=== PATIENT | female | born 1970 | race African-American/Black ===

== ENCOUNTER 2016-12-06 07:00 | Day surgery (SDC) | payer OTHER ==
--- NOTE | 2016-11-28 08:25 | HP ---
DATE OF ADMISSION: 12/06/2016 Patient to be admitted to the [facility] for surgery in the near future, date to be determined. HISTORY: This is a 46-year-old woman who has carried a diagnosis of Graves disease for some time now. She has been treated in the past and continues to be treated with methimazole. She also had I-131 thyroid treatment as recent as May of this past year. Nonetheless, at this time the patient has been referred by Dr. Marshall, of the endocrine service, for surgical management of her disease. According to the patient, her only complaint is some raspiness to her voice in the morning, which she feels clears over the course of the day. She also always feels like she has phlegm at the back of her throat but is unable to bring anything up. The patient is euthyroid, based on recent laboratory data dated September 30, 2016. Both her mother and her brother have had thyroid surgery. She does not believe either one has had thyroid cancer. There is no history of head or neck external radiation. Voice change as described above only. The patient's past medical history is essentially nil otherwise. No history of hypertension; heart disease; diabetes; respiratory, renal or hepatic insufficiency. Past surgical history is significant for rotator cuff surgery in 2007 as well as back surgery in 2009. ALLERGIES: CODEINE, REGLAN. MEDICATIONS: Methimazole. SOCIAL HISTORY: Positive tobacco, half pack per day. Negative alcohol. FAMILY HISTORY: Mother: History of thyroid disorder as well as hypercholesterolemia. Review of systems otherwise nil. On physical exam, the patient has a large protuberant bilateral gland. On palpation, the gland is enlarged diffusely, more so on the right than the left. There are no discrete nodules. There is no regional lymphadenopathy. Thyroid ultrasound evaluation of the neck demonstrates the right lobe measuring up to 6.8 cm in size, with the left lobe measuring up to 6.2 cm in size. The gland is heterogeneous in texture and is hypervascular. There is no discrete cystic or solid mass noted. Thyroid nuclear scan dated November 02, 2015, demonstrates findings suggestive of Graves disease. IMPRESSION: Goiter/Graves disease. Patient with some compressive symptoms. PLAN: Patient to present for near total/total thyroidectomy as surgical management of her Graves disease. Patient to be seen perioperatively by Dr. Marshall for Lugol treatment. I have taken the liberty of asking the patient to complete a CAT scan of the neck to assess any degree of tracheal compression that could potentially be a problem at the time of intubation. Indications, alternatives, possible complications, including but not limited to voice changes, (i.e. hoarseness), reviewed with patient at length. Consent obtained. Patient to be seen preoperatively by Dr. Jay Cantu. Please refer to his notes for those medical details. AMANDO WHITNEY M.D. [id number] Cc: Crow Marshall MD; Dr. Jay Cantu
[2016-12-04 15:06] VITALS: BMI 27.4
[2016-12-06] MEDS ORDERED: ceFAZolin SODIUM 1 GM VIAL ONE (07:31)
[2016-12-06] MEDS ORDERED: SUCCINYLCHOLINE CHLORIDE 200 MG/10 ML VIAL ONE (09:02)
[2016-12-06] MEDS ORDERED: MIDAZOLAM HCL 2 MG/2 ML SINGLE DOSE VIAL ONE (09:02)
[2016-12-06] MEDS ORDERED: ROCURONIUM BROMIDE 50 MG/5 ML VIAL ONE ×2 (09:02→10:54)
[2016-12-06] MEDS ORDERED: PROPOFOL 20 ML ONE ×2 (09:02)
[2016-12-06] MEDS ORDERED: LIDOCAINE HCL/PF 2% SDV 5ML VIAL ONE (09:02)
[2016-12-06] MEDS ORDERED: DESFLURANE GAS 240 ML BOTTLE IH ONE (09:10)
[2016-12-06] MEDS ORDERED: ceFAZolin SODIUM 1 GM VIAL IVPB ONE (09:22)
[2016-12-06] MEDS ORDERED: ONDANSETRON 4 MG/2 ML VIAL ONE (09:34)
[2016-12-06] MEDS ORDERED: NEOSTIGMINE METHYLSULFATE 0.5 MG/ML - 10 ML MDV ONE (09:35)
[2016-12-06] MEDS ORDERED: KETOROLAC TROMETHAMINE 30 MG/1 ML VIAL ONE (09:35)
[2016-12-06] MEDS ORDERED: DEXAMETHASONE SOD PHOSPHATE 4 MG/1 ML VIAL ONE (09:35)
[2016-12-06] MEDS ORDERED: GLYCOPYRROLATE 0.2 MG/1 ML VIAL ONE ×2 (09:35)
[2016-12-06] MEDS ORDERED: ONDANSETRON 4 MG/2 ML VIAL IVPUSH PRN (12:03)
[2016-12-06] MEDS ORDERED: oxyCODONE HCL 5 MG TABLET PO PRN (12:03)
[2016-12-06] MEDS ORDERED: PROMETHAZINE HCL 25 MG/1 ML VIAL IVPUSH PRN (12:03)
[2016-12-06] MEDS ORDERED: D5-1/2NS+20 MEQ KCL - 1,000 ML IV SCH (13:00)
[2016-12-06] MEDS ORDERED: ACETAMINOPHEN INJECTION 100 ML IVPB ONE (14:06)
[2016-12-06] MEDS ORDERED: ACETAMINOPHEN 1000 MG/100 ML VIAL (NON FORMULARY) IVPB ONE (14:22)
[2016-12-06] MEDS ORDERED: morphine CARPU-JECT 4 MG/1 ML DISP.SYRIN IVPB PRN (15:50)
[2016-12-06] MEDS ORDERED: ACETAMINOPHEN 325 MG TABLET (FP) PO PRN (15:52)
[2016-12-06] MEDS: FAMOTIDINE 20 MG/50 ML IVPB 50 ML IVPB SCH (21:35)
--- NOTE | 2016-12-07 08:22 | PN ---
Progress Note (short form) - Note Progress Note: POD #1 - s/p total thyroidectomy under general anesthesia. Pt. doing well, sitting up comfortably in bed eating breakfast. No complaints. No apparent anesthetic complications noted. Continue current care.
[2016-12-07] MEDS: FAMOTIDINE 20 MG/50 ML IVPB 50 ML IVPB SCH (09:24)
[2016-12-07 10:36] VITALS: BP 116/78; PULSE 62; TEMP 98.2
--- NOTE | 2016-12-07 13:36 | OP ---
DATE OF OPERATION: 12/06/2016 PREOPERATIVE DIAGNOSIS: Graves disease/goiter. POSTOPERATIVE DIAGNOSIS: Graves disease/goiter. PROCEDURE: Total thyroidectomy/intermediate wound closure (8 cm). OPERATING SURGEON: Sukumar Munguia MD TERRITORY SALES CONSULTANT: Abdias Baca MD ANESTHESIA: Osmel Smith MD (general) HISTORY: This is a 46-year-old woman who has suffered with Graves disease for quite some time, managed with methimazole as well as I-131in the past. Recently, she was referred by endocrine service for surgical management for disease. Indications, alternatives, and possible complications reviewed. Consent was obtained. DESCRIPTION OF PROCEDURE: With the patient in supine position, and after general anesthesia, the neck was prepped and draped in sterile fashion using chlorhexidine. An 8-cm anterior transverse incision was made about the neck approximately 2 fingerbreadths above the sternal notch. The incision was deepened into the subcutaneous space. The subcutaneous tissues as well as the platysma were divided and the strap muscles visualized. The superior flap was raised to the level of the hyoid bone using sharp dissection. The anterior flap was raised to the level of the recess of the sternal notch. After retractors were placed, the strap muscles were divided in the midline. First directing out attention to the patients right side, the right strap muscles were retracted laterally, exposing the right thyroid lobe. First directing our attention to the inferior pole, the inferior pole vessels were identified and taken using the ligature. The middle thyroid vein was also identified and taken as well. Now, directing our attention to the superior pole, the superior pole vessels were taken serially as the thyroid gland was retracted in the caudal direction. The superior parathyroid gland on the right was identified. The inferior gland was not seen during the course of the dissection. The right lobe was then swept medially up over the thyroid where it was disconnected from its rather dense attachment to the trachea itself using sharp dissection with the electrocautery. During the course of the dissection on the right side, the recurrent laryngeal nerve was identified. Now, directing our attention to the left side, the left gland was approached as described above for the right with the inferior pole taken first. Again, the middle vein was taken under direct vision. Superior pole vessels were taken, and the gland freed at that level, as well. Again, the superior parathyroid gland was noted on the left side, but the inferior gland was not seen. The recurrent laryngeal nerve was identified during the course of the dissection. Ultimately, the entire gland was freed from its attachment to the trachea and delivered en bloc. A suture was placed at the level of the left upper lobe to identify the orientation of the specimen for the pathologist. After irrigation and adequate hemostasis, the wound was closed first approximating the strap muscles using a continuous 3-0 chromic suture. A Min-De Leon drain was placed in the depths of the neck and exited through a separate stab wound at the level of the left anterior chest wall, where it was tacked to skin with 3-0 silk suture material. The platysma was approximated with interrupted 3-0 chromic sutures. The subcutaneous tissues were approximately with 0 chromic suture. The subcuticular was approximated using interrupted 4-0 Biosyn sutures. Dermabond applied. Procedure terminated. NEEDLE AND INSTRUMENT COUNTS: Correct. ESTIMATED BLOOD LOSS: 50 mL. SPECIMENS: Thyroid gland. DRAINS: One DEBBIE. Patient tolerated the procedure and was transferred to the recovery room. Julianna [id number] cc: MD Jay Albarran MD MTDD
--- NOTE | 2016-12-08 09:46 | PATH ---
Surgical Pathology Report Patient Name: LAUREL VALDEZ [facility]. Rec. #: [id number] /Age/Gender: 1970 (Age: 46) / F Account: [id number] Location: AMBULATORY SURG Taken: 12/06/2016 Received: 12/06/2016 Reported: 12/08/2016 Physicians: Sukumar Munguia M.D. Specimen(s) Received THYROID, TOTAL LOBE Clinical History Thyrotoxicosis with diffuse CPITEX Final Diagnosis THYROID GLAND, TOTAL THYROIDECTOMY: BENIGN THYROID GLAND WITH DIFFUSE AND NODULAR HYPERPLASIA WITH SCALLOPED COLLOID (SEE COMMENT). TWO PARATHYROID GLANDS IDENTIFIED. ONE BENIGN LYMPH NODE. NO MALIGNANCY IDENTIFIED. Comment: The histologic findings are compatible with Graves' disease. Clinical history of thyrotoxicosis is noted. Serological correlations are suggested. Electronically Signed Hussein Gutierrez M.D. Gross Description Received in formalin, labeled "thyroid" is a 62 g total thyroidectomy specimen with a suture marking the superior left lobe, per surgeon. The left lobe measures 5.3 x 2.7 x 1.6 cm, the right lobe measures 5.7 x 3.4 x 2.6 cm and the isthmus measures 2.5 x 2.5 x 1.2 cm. The outer capsule is red-brown and intact. The right lobe is inked red, the left lobe is inked black and the isthmus is inked green. Sectioning reveals pale johnson-pink thyroid parenchyma with multiple pale johnson nodules as well as a focus of hemorrhage in the the right upper lobe. No definite mass is identified. Solar Thermal Installer sections are submitted in 22 cassettes as follows: 1-8-left lobe sequentially from superior to inferior; 2-43-fnhnjsu sequentially from left to right; 12-22-right lobe sequentially from superior to inferior (possible previous biopsy site in cassettes 13-15). 12/06/201612/06/2016
== END 2016-12-07 12:32 | disposition home or self-care (01) ==
LOC: JASUSAT 07:00 → J8W 15:04 → JASUSAT 12-07 12:32
PROVIDERS: ATTEND Surgery
PROC: 0GTK0ZZ Resection of Thyroid Gland, Open Approach (ICD-10-PCS; principal; 2016-12-06 09:00)
DX: E05.00 Thyrotoxicosis with diffuse goiter without thyrotoxic crisis or storm (principal)
CPT/HCPCS: 36415; 71020-TC; 82310; 84443; 84703; 86850; 86900; 86901; 88307-TC; 94010; 94760

== ENCOUNTER 2017-03-08 05:24 | Inpatient (IN) | payer OTHER ==
[2017-03-05 16:01] VITALS: BMI 29.8
[2017-03-08] MEDS ORDERED: MIDAZOLAM HCL 2 MG/2 ML SINGLE DOSE VIAL ONE ×2 (10:07)
[2017-03-08] MEDS ORDERED: CEFAZOLIN 2 GM in DEXTROSE 5%-WATER - 100 ML IVPB ONE (10:32)
--- NOTE | 2017-03-08 10:32 | HP ---
History & Physical Update - History History: No Change - Physical Physical: No Change - Assessment Assessment: No Change - Plan Plan: No Change (Fibroids and AUB, for DUANE and bilateral salpingectomy)
[2017-03-08] MEDS ORDERED: ACETAMINOPHEN 325 MG TABLET (FP) PO PRN (10:49)
[2017-03-08] MEDS ORDERED: IBUPROFEN 800 MG/8 ML IJ IVPB PRN (10:49)
[2017-03-08] MEDS ORDERED: HYDROmorphone HCL 2 MG TABLET PO PRN (10:54)
[2017-03-08] MEDS ORDERED: PROPOFOL 20 ML ONE (11:05)
[2017-03-08] MEDS ORDERED: ROCURONIUM BROMIDE 50 MG/5 ML VIAL ONE (11:05)
[2017-03-08] MEDS ORDERED: ceFAZolin SODIUM 1 GM VIAL IVPB ONE (11:07)
[2017-03-08] MEDS ORDERED: ceFAZolin SODIUM 1 GM VIAL ONE (11:15)
[2017-03-08] MEDS ORDERED: LIDOCAINE HCL 2% (20ML MULTI-DOSE VIAL) NR ONE (11:15)
[2017-03-08] MEDS ORDERED: KETOROLAC TROMETHAMINE 30 MG/1 ML VIAL ONE (11:15)
[2017-03-08] MEDS ORDERED: DEXAMETHASONE SOD PHOSPHATE 4 MG/1 ML VIAL ONE (11:15)
[2017-03-08] MEDS ORDERED: GLYCOPYRROLATE 0.2 MG/1 ML VIAL ONE (12:24)
[2017-03-08] MEDS ORDERED: NEOSTIGMINE METHYLSULFATE 0.5 MG/ML - 10 ML MDV ONE (12:25)
--- NOTE | 2017-03-08 12:50 | OP ---
Operative Note - Note: Operative Date: 03/08/17 Pre-Operative Diagnosis: fibroid uterus, abnormal uterine bleeding Operation: total abdominal hysterectomy, bilateral salpingectomy, right oophorectomy Findings: right ovarian cyst - solid and cystic components Post-Operative Diagnosis: Same as Pre-op Surgeon: Eugenia Ricketts Wood Barker: Sherry Rich Anesthesiologist/MANAGER PSYCHIATRY: Bharti Collier MD Anesthesia: General Specimens Removed: uterus, cervix, bliateral fallopian tubes, right ovary Estimated Blood Loss (mls): 300 Drains, Volume Out (mls): 150 (urine) Fluid Volume Replaced (mls): 1,600 Operative Report Dictated: Yes
[2017-03-08] MEDS ORDERED: ONDANSETRON 4 MG/2 ML VIAL IVPUSH PRN (13:12)
[2017-03-08] MEDS ORDERED: DEXAMETHASONE SOD PHOSPHATE 4 MG/1 ML VIAL IVPUSH PRN (13:12)
[2017-03-08] MEDS ORDERED: PROMETHAZINE HCL 25 MG/1 ML VIAL IVPB PRN (13:12)
[2017-03-08] MEDS ORDERED: HYDROmorphone *PCA* 10MG/50ML DISP.SYRIN PCA SCH (13:15)
[2017-03-08] MEDS: LACTATED RINGERS SOLUTION 1,000 ML IV SCH ×2 (13:30→23:15)
[2017-03-08] MEDS ORDERED: ACETAMINOPHEN 1000 MG/100 ML VIAL (NON FORMULARY) IVPB ONE (15:00)
[2017-03-08] MEDS: ONDANSETRON 4 MG/2 ML VIAL IVPB PRN (18:06)
[2017-03-08] MEDS: CEFAZOLIN (PRE-DOCKED) 50 ML IVPB SCH (19:30)
[2017-03-09] MEDS: CEFAZOLIN (PRE-DOCKED) 50 ML IVPB SCH ×2 (03:07→10:02)
[2017-03-09] MEDS: traMADol HCL 50 MG TABLET PO PRN (08:21)
--- NOTE | 2017-03-09 08:36 | PN ---
Progress Note (short form) - Note Progress Note: ANESTHESIOLOGY POST-OP CHECK 46F s/p DUANE-BS and right oophorectomy with TAP blocks and under general anesthesia POD #1. No acute complaints. Pain 5/10 [address] on dilaudid DRIVE MAN. Tolerating PO . ambulating, voiding. Vital Signs Temperature 97.8 F 03/09/17 01:18 Pulse Rate 54 L 03/09/17 01:18 Respiratory Rate 20 03/09/17 01:18 Blood Pressure 137/77 03/09/17 01:18 O2 Sat by Pulse Oximetry (%) 99 03/08/17 15:31 Active Medications Acetaminophen (Tylenol -) 650 mg PO Q4H PRN PRN Reason: FEVER OR PAIN Calcium/Vitamin D (Oscal 250 Mg+D -) tab PO TID [facility] Dexamethasone Sodium Phosphate (Decadron Injection -) 4 mg IVPUSH ONCE PRN PRN Reason: NAUSEA AND/OR VOMITING Diphenhydramine HCl (Benadryl Injection -) 12.5 mg IVPUSH ONCE PRN PRN Reason: FOR ITCHING Enoxaparin Sodium (Lovenox -) 40 mg SQ DAILY [facility] Fentanyl (Sublimaze Injection -) 50 mcg IVPUSH [id number] PRN PRN Reason: PAIN Stop: 03/11/17 13:13 Last Admin: 03/08/17 12:48 Dose: 50 mcg Hydromorphone HCl (Dilaudid Peoplesoft Business Analyst -) [address] [facility] PRN Reason: Protocol Stop: 03/15/17 13:12 Last Admin: 03/08/17 13:30 Dose: 10 mg Lactated Ringer's (Lactated Ringers Solution) 1,000 mls @ 125 mls/hr IV ASDIR [facility] Last Admin: 03/08/17 23:15 Dose: 125 mls/hr Cefazolin Sodium (Ancef 1gm Ivpb (Pre-Docked)) 50 mls @ 100 mls/hr IVPB Q8H [facility] Stop: 03/09/17 11:29 Last Admin: 03/09/17 03:07 Dose: 100 mls/hr Ibuprofen (Caldolor Injection -) 800 mg IVPB Q8H PRN PRN Reason: FEVER Levothyroxine Sodium (Synthroid -) 88 mcg PO DAILY [facility] Ondansetron HCl (Zofran Injection) 4 mg IVPB Q6H PRN PRN Reason: NAUSEA Stop: 03/09/17 09:01 Last Admin: 03/08/17 18:06 Dose: 4 mg Promethazine HCl (Phenergan Injection -) 12.5 mg IVPB Q6H PRN PRN Reason: NAUSEA AND/OR VOMITING Tramadol HCl (Ultram -) 50 mg PO Q6H PRN PRN Reason: PAIN Last Admin: 03/09/17 08:21 Dose: 50 mg Gen: awake, alert No apparent anesthesia complications. Pain well controlled. D/C DRIVE MAN and switch to PO analgesics when tolerating PO diet. Continue management as per primary team
[2017-03-09 08:56] LABS: BASOPHIL 0.5 % (0-2.0); EOSINOPHIL 0.6 % (0-4.5); MCH 27.7 pg (25.7-33.7); MCHC 33.6 g/dl (32.0-36.0); MEAN CELL VOLUME 82.3 fl (80-96); MEAN PLT VOLUME 7.4 fl (7.5-11.1); NEUTROPHILS 82.9 % (42.8-82.8); PLATELET COUNT 249 K/MM3 (134-434); RDW 17.7 % (11.6-15.6); WHITE BLOOD COUNT 16.9 K/mm3 (4.0-10.0)
[2017-03-09] MEDS: ONDANSETRON 4 MG/2 ML VIAL IVPB PRN (08:58)
--- NOTE | 2017-03-09 09:43 | PN ---
Progress Note, Physician Chief Complaint: Pt with no complaints History of Present Illness: Pt seen/evaluated and doing well. Pain controlled, tolerating clear diet. Ambulating, voiding. No flatus yet. Pt states she was unable to sleep well last night. Denies VB. No CP/SOB/F/C/STALLWORTH or other complaints. - Current Medication List Current Medications: Active Medications Acetaminophen (Tylenol -) 650 mg PO Q4H PRN PRN Reason: FEVER OR PAIN Calcium/Vitamin D (Oscal 250 Mg+D -) tab PO TID [facility] Dexamethasone Sodium Phosphate (Decadron Injection -) 4 mg IVPUSH ONCE PRN PRN Reason: NAUSEA AND/OR VOMITING Diphenhydramine HCl (Benadryl Injection -) 12.5 mg IVPUSH ONCE PRN PRN Reason: FOR ITCHING Enoxaparin Sodium (Lovenox -) 40 mg SQ DAILY [facility] Fentanyl (Sublimaze Injection -) 50 mcg IVPUSH [id number] PRN PRN Reason: PAIN Stop: 03/11/17 13:13 Last Admin: 03/08/17 12:48 Dose: 50 mcg Hydromorphone HCl (Dilaudid Child Watch Attendant -) 0 mg INSULATION CUPOLA OPERATOR INSULATION CUPOLA OPERATOR CESAR PRN Reason: Protocol Stop: 03/15/17 13:12 Last Admin: 03/08/17 13:30 Dose: 10 mg Lactated Ringer's (Lactated Ringers Solution) 1,000 mls @ 125 mls/hr IV ASDIR [facility] Last Admin: 03/08/17 23:15 Dose: 125 mls/hr Cefazolin Sodium (Ancef 1gm Ivpb (Pre-Docked)) 50 mls @ 100 mls/hr IVPB Q8H [facility] Stop: 03/09/17 11:29 Last Admin: 03/09/17 03:07 Dose: 100 mls/hr Ibuprofen (Caldolor Injection -) 800 mg IVPB Q8H PRN PRN Reason: FEVER Levothyroxine Sodium (Synthroid -) 88 mcg PO DAILY [facility] Promethazine HCl (Phenergan Injection -) 12.5 mg IVPB Q6H PRN PRN Reason: NAUSEA AND/OR VOMITING Tramadol HCl (Ultram -) 50 mg PO Q6H PRN PRN Reason: PAIN Last Admin: 03/09/17 08:21 Dose: 50 mg - Objective Vital Signs: Vital Signs Temperature 97.8 F 03/09/17 01:18 Pulse Rate 54 L 03/09/17 01:18 Respiratory Rate 20 03/09/17 01:18 Blood Pressure 137/77 03/09/17 01:18 O2 Sat by Pulse Oximetry (%) 99 03/08/17 15:31 Constitutional: Yes: Well Nourished, No Distress, Calm Eyes: Yes: Conjunctiva Clear, EOM Intact HENT: Yes: Atraumatic, Normocephalic Neck: Yes: Supple, Trachea Midline Cardiovascular: Yes: Regular Rate and Rhythm Respiratory: Yes: Regular, CTA Bilaterally Gastrointestinal: Yes: Normal Bowel Sounds, Soft. No: Tenderness Extremities: Yes: WNL Edema: No Wound/Incision: Yes: Clean/Dry, Well Approximated, Sutures Intact, Steri Strips Neurological: Yes: Alert, Oriented Labs: CBC, BMP 03/09/17 08:30 Problem List - Problems (1) S/P abdominal hysterectomy Code(s): Z90.710 - ACQUIRED ABSENCE OF BOTH CERVIX AND UTERUS (2) Hypothyroidism (acquired) Code(s): E03.9 - HYPOTHYROIDISM, UNSPECIFIED (3) Anemia Code(s): D64.9 - ANEMIA, UNSPECIFIED Assessment/Plan 46 y/o POD#1 s/p DUANE and bilateral salpingectomy, right oophorectomy for fibroids, AUB and right ovarian cyst - AFVSS - Hgb 10.6 this a.m., pt stable, no signs/sx of anemia - tolerating clear diet, advance to regular as tolerated - pain controlled with IV Dilaudid overnight, will try PO dilaudid today ( ultram made patient vomit) - encourage ambulation - hypothryoid - continue synthroid - routine care, plan for discharge home in a.m. 03/10
[2017-03-09] MEDS ORDERED: ENOXAPARIN NA (PORCINE) 40 MG/0.4 ML DISP.SYRIN SQ SCH (10:00)
[2017-03-09] MEDS: LACTATED RINGERS SOLUTION 1,000 ML IV SCH (11:00)
[2017-03-09] MEDS: LEVOTHYROXINE NA 88 MCG TABLET (FP) PO SCH (12:38)
[2017-03-09] MEDS: CALCIUM 250MG/VIT-D 125 UNITS 1 COMBO TABLET PO SCH ×2 (14:00→23:02)
[2017-03-09] MEDS ORDERED: BISACODYL 10 MG SUPP.RECT PR ONE (15:06)
[2017-03-09] MEDS ORDERED: PCA PUMP KEY 1 EACH EACH ONE ×2 (15:23→15:26)
[2017-03-10] MEDS: CALCIUM 250MG/VIT-D 125 UNITS 1 COMBO TABLET PO SCH (06:18)
[2017-03-10] MEDS: LEVOTHYROXINE NA 88 MCG TABLET (FP) PO SCH (06:18)
[2017-03-10] MEDS: traMADol HCL 50 MG TABLET PO PRN (07:42)
--- NOTE | 2017-03-10 08:39 | PN ---
Progress Note, Physician Chief Complaint: s/p tahbso condition stable - Current Medication List Current Medications: Active Medications Acetaminophen (Tylenol -) 650 mg PO Q4H PRN PRN Reason: FEVER OR PAIN Last Admin: 03/09/17 21:50 Dose: 650 mg Calcium/Vitamin D (Oscal 250 Mg+D -) 1 tab PO TID [facility] Last Admin: 03/10/17 06:18 Dose: 1 tab Dexamethasone Sodium Phosphate (Decadron Injection -) 4 mg IVPUSH ONCE PRN PRN Reason: NAUSEA AND/OR VOMITING Diphenhydramine HCl (Benadryl Injection -) 12.5 mg IVPUSH ONCE PRN PRN Reason: FOR ITCHING Enoxaparin Sodium (Lovenox -) 40 mg SQ DAILY [facility] Last Admin: 03/09/17 10:01 Dose: 40 mg Fentanyl (Sublimaze Injection -) 50 mcg IVPUSH [id number] PRN PRN Reason: PAIN Stop: 03/11/17 13:13 Last Admin: 03/08/17 12:48 Dose: 50 mcg Hydromorphone HCl (Dilaudid Glost Tile Shader -) 0 mg MANUFACTURING ASSOCIATE MANUFACTURING ASSOCIATE [facility] PRN Reason: Protocol Stop: 03/15/17 13:12 Last Admin: 03/08/17 13:30 Dose: 10 mg Lactated Ringer's (Lactated Ringers Solution) 1,000 mls @ 125 mls/hr IV ASDIR [facility] Last Admin: 03/09/17 11:00 Dose: 125 mls/hr Ibuprofen (Caldolor Injection -) 800 mg IVPB Q8H PRN PRN Reason: FEVER Last Admin: 03/09/17 10:51 Dose: 800 mg Levothyroxine Sodium (Synthroid -) 88 mcg PO DAILY@0700 [facility] Last Admin: 03/10/17 06:18 Dose: 88 mcg Promethazine HCl (Phenergan Injection -) 12.5 mg IVPB Q6H PRN PRN Reason: NAUSEA AND/OR VOMITING Tramadol HCl (Ultram -) 50 mg PO Q6H PRN PRN Reason: PAIN Last Admin: 03/10/17 07:42 Dose: 50 mg - Objective Vital Signs: Vital Signs Temperature 98.7 F 03/09/17 22:00 Pulse Rate 77 03/09/17 22:00 Respiratory Rate 20 03/09/17 22:00 Blood Pressure 120/70 05/19/17 22:00 O2 Sat by Pulse Oximetry (%) 99 03/09/17 09:48 Constitutional: Yes: Well Nourished, No Distress Eyes: Yes: WNL, Conjunctiva Clear HENT: Yes: WNL, Atraumatic, Normocephalic Neck: Yes: WNL, Supple Cardiovascular: Yes: WNL Respiratory: Yes: WNL, Regular Gastrointestinal: Yes: WNL, Normal Bowel Sounds ...Rectal Exam: Yes: Deferred Genitourinary: Yes: WNL Breast(s): Yes: WNL Musculoskeletal: Yes: WNL Extremities: Yes: WNL Edema: No Integumentary: Yes: WNL Wound/Incision: Yes: Clean/Dry Neurological: Yes: WNL, Alert, Oriented ...Motor Strength: WNL Psychiatric: Yes: WNL, Alert, Oriented Labs: CBC, BMP 03/09/17 08:30 Assessment/Plan s/p kosta bso condition is stable discharge [facility]
[2017-03-10 09:11] VITALS: BP 135/69; PULSE 65; TEMP 98.9
--- NOTE | 2017-03-10 11:26 | DS ---
Physical Examination Vital Signs: Vital Signs Temperature 98.9 F 03/10/17 08:35 Pulse Rate 65 03/10/17 08:35 Respiratory Rate 20 03/10/17 08:35 Blood Pressure 135/69 03/10/17 08:35 O2 Sat by Pulse Oximetry (%) 99 03/09/17 09:48 Constitutional: Yes: Well Nourished, No Distress, Calm Eyes: Yes: Conjunctiva Clear, EOM Intact HENT: Yes: Atraumatic, Normocephalic Neck: Yes: Supple, Trachea Midline, Tenderness Respiratory: Yes: Regular, CTA Bilaterally Gastrointestinal: Yes: Normal Bowel Sounds, Soft, Tenderness Edema: No Peripheral Pulses WNL: Yes Wound/Incision: Yes: Clean/Dry, Well Approximated, Sutures Intact, Steri Strips Neurological: Yes: Alert, Oriented Psychiatric: Yes: Alert, Oriented Labs: CBC, BMP 03/09/17 08:30 Discharge Summary Reason For Visit: FIBROIDS Procedures: Principal: Total abdominal hysterectomy, bilateral salpingectomy, right oophorectomy Hospital Course: Patient was admitted on 03/08/17 for scheduled abdominal hysterectomy, bilateral salpingectomy and possible right oophorectomy vs. right ovarian cystectomy. The patient signed consents for the procedure in the office and consents were reconfirmed upon admission. The patient underwent an uncomplicated total abdominal hysterectomy and bilateral saplingectomy with right oophorectomy. Please see operative report for full details of procedure. The patient underwent an uncomplicated post operative recovery and was discharged home in stable condition on post operative day 2. Condition: Good - Instructions Diet, Activity, Other Instructions: Physical activity Resume your normal everyday activity as tolerated but no heavy lifting or strenuous exercise until seen by your surgeon. You may walk unlimited amounts and climb stairs. You may resume driving the car when you feel safe and comfortable behind the wheel- usually about 2 weeks. No sexual activity as instructed for 8 weeks. Wound care If there are tapes or surgical glue on the skin leave them in place. They will peel off in the next 7 to 10 days. Do Not Peel them off. You may shower the day after surgery. If there are tapes or glue present on the skin, you may shower over them. Diet There are no dietary restrictions. Eat healthy, high-fiber foods. Drink 6 to 8 glasses of liquid each day. This will assist in keeping your bowels regular. Pain management You may take Tylenol or Ibuprofen (for example, Motrin, Advil etc.) for mild pain. If any prescription medication is ordered should be taken as prescribed for moderate to severe pain. Call Dr. Ricketts for any of the following: Severe pain not relieved by medication Fever of 101 or higher Excessive bleeding or drainage on dressing Inability to urinate Call the office at [phone] for an appointment in seven days. Referrals: Eugenia Ricketts DO [Staff Physician] - 1 Week Disposition: HOME - Home Medications Comprehensive Discharge Medication List: Ambulatory Orders Calcium 250Mg/Vit-D 125 Units [Oscal 250 mg+D -] 2 combo PO TID #100 tablet Levothyroxine [Synthroid -] 88 mcg PO DAILY 03/05/17 Ferrous Sulfate [Feosol] 325 mg PO DAILY 03/08/17 Hydromorphone [Dilaudid -] 2 - 4 mg PO Q6H #28 tablet MDD 8 03/09/17 Ibuprofen [Motrin -] 600 mg PO QID PRN #28 tablet 03/09/17
--- NOTE | 2017-03-11 21:07 | OP ---
DATE OF OPERATION: 03/08/2017 PREOPERATIVE DIAGNOSIS: Uterine fibroids, abnormal uterine bleeding, right ovarian cyst. POSTOPERATIVE DIAGNOSIS: Uterine fibroids, abnormal uterine bleeding, right ovarian cyst. PROCEDURE: Total abdominal hysterectomy and bilateral salpingectomy, right oophorectomy. SURGEON: Eugenia Ricketts MD AIRPLANE TECHNICIAN: Sherry Rich MD ANESTHESIA: General anesthesia administered by Dr. Collier. ESTIMATED BLOOD LOSS: 300 mL. SPECIMENS: Uterus, bilateral fallopian tubes, cervix and well right ovary to Pathology for permanent evaluation. COUNTS: Sponge, needle and instrument count correct DISPOSITION: Stable to the PACU. BRIEF HISTORY AND PROCEDURE: The patient is a 46-year-old female who had been seen in the office with complaints of heavy vaginal bleeding with her period. The patient has been worked up and noted to have a fibroid uterus. Upon consultation for her options for therapy, the patient had elected to undergo a hysterectomy. The patient signed consents for the procedure in the office, and upon March 08, 2017, the patient was admitted to [facility]. At this point the consents for the procedure were confirmed. The patient was taken to the operating room and given general anesthesia by Dr. Bharti Collier. A Goodwin catheter was placed under sterile conditions. She was prepped and draped in the usual sterile fashion and a hard time-out was performed. A Pfannenstiel skin incision was created in the skin with the scalpel and carried to the underlying layer of rectus fascia with the scalpel. The fascial incision was incised on either side of the midline and carried in a superolateral direction with the Bovie. The fascia was tented upward and dissected off the underlying layer of rectus muscle. The rectus muscle was retracted laterally and the peritoneum was entered bluntly. Next, the uterus was elevated out of the abdomen. Attention was first turned to the right round ligament, which was identified, clamped, ligated, and cut with a LigaSure device. The bladder flap anteriorly was taken down sharply with Metzenbaum scissors. The fallopian tube was dissected off its attachment to the ovary and the uteroovarian anastomosis was then clamped, ligated and cut with a LigaSure device. Next, the right uterine artery was skeletonized and isolated and then clamped, ligated and cut with the LigaSure device in several passes until we reached the level of the cervicovaginal junction. These same steps were repeated on the left side, starting with the left round ligament. The bladder flap was extended to meet in the middle where it had been started from the right side. The left fallopian tube was dissected off its ovarian and uterine attachments with the ligasure device. The uteroovarian ligament on the left side was clamped, ligated, and cut, and the uterine arteries were isolated, clamped and cut, all with the LigaSure device to the level of the cervicovaginal junction. Next, the vagina was entered anteriorly sharply and the uterus was amputated in a 360-degree fashion at the cervicovaginal junction using Dexter scissors. The vaginal cuff was reapproximated using 0 Vicryl suture in a running locked fashion. Hemostasis was achieved. Attention was turned to the right ovary, which was enlarged and had a dominant cyst, which was noted to be somewhat cystic but a solid component was also noted. No clear area to make an incision to excise the ovarian cyst was appreciated. At this time it was decided to remove the entire ovary. The infundibulopelvic ligament was identified, doubly clamped, ligated, and cut with the LigaSure device. The right ovary was sent to Pathology for permanent evaluation. Surgical sites were inspected and noted to be hemostatic. Bilateral ureters were identified transperitoneally bilaterally and noted to be with a normal caliber and peristalsing. Again, all surgical sites were identified and noted to be hemostatic. All sponges and instruments were removed from the abdominal cavity. The peritoneal layer was reapproximated in a running fashion using Vicryl suture. The musculature was reapproximated in a single interrupted suture. The fascia was reapproximated using 0 Vicryl in a running fashion. Subcutaneous tissue was irrigated and reapproximated in interrupted sutures. The skin was reapproximated using Vicryl suture in a subcuticular fashion and Steri-Strips were applied. The patient tolerated the procedure well, is recovering in stable condition in the PACU after the procedure. Sponge needle and instrument counts were reported as correct. EUGENIA RICKETTS DO /[id number] MTDD
--- NOTE | 2017-03-14 11:20 | PATH ---
Surgical Pathology Report Patient Name: LAUREL VALDEZ [facility]. Rec. #: [id number] /Age/Gender: 1970 (Age: 46) / F Account: [id number] Location: [facility] OBS/CERTIFIER Taken: 03/08/2017 Received: 03/08/2017 Reported: 03/12/2017 Physicians: Eugenia Ricketts M.D. Specimen(s) Received A: RIGHT OVARY B: UTERUS AND CERVIX & BILATERAL FALLOPIAN TUBES Clinical History Fibroids, abnormal uterine bleeding Final Diagnosis A. 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 B. UTERUS, CERVIX, BILATERAL FALLOPIAN TUBES, TOTAL ABDOMINAL HYSTERECTOMY, BILATERAL SALPINGECTOMY: CERVIX: CHRONIC CERVICITIS. ENDOMETRIUM: DISORDERED PROLIFERATIVE. MYOMETRIUM: ADENOMYOSIS, LEIOMYOMA (5.7 CM). UTERINE SEROSA: WITHOUT SIGNIFICANT PATHOLOGIC CHANGES. LEFT FALLOPIAN TUBE: FIBRINOHEMORRHAGIC ADHESIONS. RIGHT FALLOPIAN TUBE: FIBROHEMORRHAGIC ADHESIONS AND PARATUBAL CYST. Electronically Signed Hussein Gutierrez M.D. Gross Description A. Received in formalin labeled "right ovary" is a 6.0 x 5.3 x 4.5 cm intact ovary. The outer surface is johnson-valdez and smooth. Sectioning reveals a 4.2 x 3.5 x 3.3 cm homogeneous johnson solid mass as well as a focal mucinous and cystic component. No normal ovarian parenchyma is identified. Silk Spreader sections are submitted in 8 cassettes. B. Received in formalin labeled "uterus, cervix, bilateral fallopian tubes" is a 434 g hysterectomy specimen including a uterus, cervix and bilateral attached fallopian tubes. The specimen measures 14 cm from superior to inferior, 10.5 cm from left to right and 7.5 cm from anterior to posterior. The serosa is johnson-pink and smooth. The attached cervix measures 3.5 cm in length and averages 2.4 cm in diameter. The ectocervix is johnson-pink, smooth and glistening. The endocervix is unremarkable. The endometrial cavity measures 7 cm from superior to inferior and 5.5 cm from left to right. There is a 5.7 cm in greatest dimension bulging submucosal nodule present. The endometrium is red brown and averages 0.1 cm in thickness. The cut surface of the submucosal nodule is johnson, firm to rubbery and displays whorled architecture. No areas of hemorrhage or necrosis are identified. The remaining myometrium is johnson-pink with whorled architecture, consistent with adenomyosis. The myometrium averages 3.6 cm in thickness. The left fimbriated fallopian tube measures 4 cm in length. The outer surface is valdez-purple. Sectioning reveals a pinpoint lumen. The right fimbriated fallopian tube measures 3 cm in length. The outer surface is valdez-purple with a 0.7 cm in greatest dimension attached paratubal cyst. Sectioning reveals a pinpoint lumen. Silk Spreader sections are submitted in a 12 cassettes as follows: 1-anterior cervix; 2-posterior cervix; 2-0-rzfpwsgr endomyometrium; 3-9-ozudgkesd endomyometrium; 0-3-fhciwdtbzg nodule; 9-left fallopian tube fimbria; 10-cross sections of left fallopian tube; 11-right fallopian tube fimbria; 12-cross sections of right fallopian tube and paratubal cyst. 03/09/2017 [facility]03/09/2017
== END 2017-03-10 08:45 | disposition home or self-care (01) | DRG 519 ==
LOC: JSAMEDAYSX 05:24 → J3W 15:04 → EDSTATUS 15:50
PROVIDERS: ADMIT Obstetrics & Gynecology; ATTEND Obstetrics & Gynecology
PROC: 0UTC0ZZ Resection of Cervix, Open Approach (ICD-10-PCS; 2017-03-08)
PROC: 0UT70ZZ Resection of Bilateral Fallopian Tubes, Open Approach (ICD-10-PCS; 2017-03-08)
PROC: 0UB00ZZ Excision of Right Ovary, Open Approach (ICD-10-PCS; 2017-03-08)
PROC: 0UT90ZZ Resection of Uterus, Open Approach (ICD-10-PCS; principal; 2017-03-08 10:00)
DX: D25.9 Leiomyoma of uterus, unspecified (principal); N83.201 Unspecified ovarian cyst, right side; N93.8 Other specified abnormal uterine and vaginal bleeding; E03.9 Hypothyroidism, unspecified; D64.9 Anemia, unspecified
CPT/HCPCS: 36415; 85025; 88307-TC; 94010; 94760

== ENCOUNTER 2017-10-18 16:14 | Emergency (ER) | payer OTHER ==
[2017-10-18 16:31] VITALS: BP 134/74; PULSE 72; TEMP 98; BMI 30.9
--- NOTE | 2017-10-18 16:32 | PDOC ---
Rapid Medical Evaluation Chief Complaint: Pain Time Seen by Provider: 10/18/17 16:27 Medical Evaluation: Allergies Allergy/AdvReac Type Severity Reaction Status Date / Time codeine Allergy Swelling Verified 03/08/17 09:01 10/18/17 16:27 The patient presents with a chief complaint of: L foot/ankle pain. Pt. states that she stepped out of her car yesterday and thinks she rolled her ankle. I have performed a brief in-person evaluation of this patient; Pertinent physical exam findings TTP of the lateral malleolus, base of 5th metatarsal I have ordered the following: urine , L foot/ankle x-ray The patient will proceed to the ED for further evaluation.
--- NOTE | 2017-10-18 17:43 | PDOC ---
History of Present Illness - General Chief Complaint: Pain Stated Complaint: FOOT INJURY Time Seen by Provider: 10/18/17 16:27 History Source: Patient Exam Limitations: No Limitations - History of Present Illness Initial Comments: 10/18/17 17:44 Patient is a [47-year-old female history of hypothyroidism on Synthroid, presents for evaluation think she may have twisted her left ankle no with pain to left lateral ankle.] Past Medical History: [Denies]. Allergies: No known allergies Medications: [Synthroid] Family History: Non-contributory Social History: Denies smoking, alcohol use, or IVDU Vital signs on arrival are [notable for pulse of 96.] Review of Systems GENERAL/CONSTITUTIONAL: [No fever or chills. No weakness. No weight change.] HEAD, EYES, EARS, NOSE AND THROAT: [No change in vision. No ear pain or discharge. No sore throat. ] CARDIOVASCULAR: [No chest pain or shortness of breath.] RESPIRATORY: [No cough, wheezing, or hemoptysis.] GASTROINTESTINAL: [No nausea, vomiting, diarrhea or constipation. No rectal bleeding.] GENITOURINARY: [No dysuria, frequency, or change in urination.] MUSCULOSKELETAL: [Pain to left lateral ankle. No neck or back pain.] SKIN : [No rash or easy bruising. No erythema or edema. ] NEUROLOGIC: [No headache, vertigo, loss of consciousness, or loss of sensation.] ENDOCRINE: [No increased thirst. No abnormal weight change.] HEMATOLOGIC/LYMPHATIC: [No anemia, easy bleeding, or history of blood clots.] ALLERGIC/IMMUNOLOGIC: [No hives or skin allergy. No latex allergy.] Physical Exam: GENERAL: [The patient is awake, alert, and fully oriented, in no acute distress. ] EYES: [Pupils equal, round and reactive to light, extraocular movements intact, sclera anicteric, conjunctiva clear.] ENT: [Ears normal, nares patent, oropharynx clear without exudates. Moist mucous membranes. No uvula deviation] NECK: [Normal range of motion, supple without lymphadenopathy, JVD, or masses.] LUNGS: [Breath sounds equal, clear to auscultation bilaterally. No wheezes, and no crackles.] HEART: [Regular rate and rhythm, normal S1 and S2 without murmur, rub or gallop. ] ABDOMEN: [Soft, nontender, normoactive bowel sounds. No guarding, no rebound. No masses. No bruising or abrasions] MUSCULOSKELETAL: [Normal range of motion, no edema. No clubbing or cyanosis. No cords, erythema, or tenderness. Pain to left lateral ankle with no evidence of edema or erythema.] NEUROLOGICAL: [Cranial nerves II through XII grossly intact. Normal speech, normal gait.] SKIN: [Warm, Dry, normal turgor, no rashes or lesions noted. There is a palpable solid mass noted to left lateral lower ankle which is being evaluated by her PMD] Past History - Past Medical History Allergies/Adverse Reactions: Allergies Allergy/AdvReac Type Severity Reaction Status Date / Time codeine Allergy Swelling Verified 10/18/17 16:31 Home Medications: Ambulatory Orders Levothyroxine [Synthroid -] 88 mcg PO DAILY 03/05/17 Ferrous Sulfate [Feosol] 325 mg PO DAILY 03/08/17 Ibuprofen [Motrin -] 600 mg PO QID #28 tablet 10/18/17 Anemia: No Asthma: No Cancer: No Cardiac Disorders: No CVA: No COPD: No CHF: No Dementia: No Diabetes: No GI Disorders: No Disorders: No HTN: No Hypercholesterolemia: No Liver Disease: No Seizures: No Thyroid Disease: Yes (hypothyroid) - Surgical History Neurologic Surgery: Yes (SPINAL SX) - Suicide/Smoking/Psychosocial Hx Smoking History: Current every day smoker Have you smoked in the past 12 months: Yes Number of Cigarettes Smoked Daily: 10 Information on smoking cessation initiated: No 'Breaking Loose' booklet given: 03/08/17 Hx Alcohol Use: No Drug/Substance Use Hx: No Substance Use Type: None Hx Substance Use Treatment: No *Physical Exam - Vital Signs Last Vital Signs Temp Pulse Resp BP Pulse Ox 98 F 72 18 134/74 100 10/18/17 16:27 10/18/17 16:27 10/18/17 16:27 10/18/17 16:27 10/18/17 16:27 Medical Decision Making - Medical Decision Making 10/18/17 20:01 A/P: Patient with left ankle pain thinks she may have twisted her ankle yesterday, sent to x-ray wet read is negative for acute fracture dislocation will apply Sal wrap, Aircast and Motrin as needed for pain. Orthopedics in one week if pain persists I discussed the physical exam findings, ancillary test results and final diagnoses with the patient. I answered all of the patient's questions. The patient was satisfied with the care received and felt comfortable with the discharge plan and treatment plan. The patient will call to arrange follow-up and will return to the Emergency Department with any new, persistent or worsening symptoms. *DC/Admit/Observation/Transfer Diagnosis at time of Disposition: Ankle sprain Qualifiers: Encounter type: initial encounter Involved ligament of ankle: unspecified ligament Laterality: left Qualified Code(s): S93.402A - Sprain of unspecified ligament of left ankle, initial encounter - Discharge Dispostion Disposition: HOME Condition at time of disposition: Stable Admit: No - Prescriptions Prescriptions: Ibuprofen [Motrin -] 600 mg PO QID #28 tablet - Referrals Referrals: Jay Cantu MD, MD [Primary Care Provider] - - Patient Instructions Printed Discharge Instructions: DI for Ankle Pain Additional Instructions: 1. Please return to the emergency department with any redness, swelling, increased pain, or any other concerns. 2. Keep splint on. 3. Please follow up in the office of Dr. Dahl within a week if pain persists. 4. No weightbearing 5. Ice and elevate when at rest. 6. Motrin for pain - Post Discharge Activity Forms/Work/School Notes: Back to Work
== END 2017-10-18 18:13 | disposition home or self-care (01) ==
LOC: JERFT 16:14
DX: S93.402A Sprain of unspecified ligament of left ankle, initial encounter (principal); X50.1XXA Overexertion from prolonged static or awkward postures, initial encounter; V48.4XXA Person boarding or alighting a car injured in noncollision transport accident, initial encounter; Y92.488 Other paved roadways as the place of occurrence of the external cause; Y93.89 Activity, other specified; Y99.8 Other external cause status
CPT/HCPCS: 73610-TC-LT; 73630-TC-LT; 84703; 99281-25

== ENCOUNTER 2019-01-03 18:02 | Emergency (ER) | payer OTHER ==
--- NOTE | 2019-01-03 18:38 | PDOC ---
Rapid Medical Evaluation Time Seen by Provider: 01/03/19 18:37 Medical Evaluation: Allergies Allergy/AdvReac Type Severity Reaction Status Date / Time codeine Allergy Swelling Verified 10/18/17 16:31 01/03/19 18:37 I performed a brief in-person evaluation of this patient. Chief complaint: Subjective fevers/chills, coughing, chest pain Pertinent physical exam findings: Afebrile, persistent coughing. Clear lungs. I have ordered the following: CXR, influenza Patient to proceed to the ED for further evaluation. 01/03/19 18:40 Discharge Disposition - Diagnosis Fever - Referrals Referrals: Jay Cantu MD, MD [Primary Care Provider] - - Patient Instructions - Post Discharge Activity
[2019-01-03 18:40] VITALS: BP 118/70; PULSE 89; TEMP 98.5; BMI 30.7
--- NOTE | 2019-01-03 19:37 | PDOC ---
History of Present Illness - General Chief Complaint: Cold Symptoms Stated Complaint: Cold Symptoms Time Seen by Provider: 01/03/19 18:37 History Source: Patient Exam Limitations: No Limitations - History of Present Illness Initial Comments: 01/03/19 19:30 Best Contact: PCP: Dr. Jay Jaimes/[facility] New Pmhx: NIDDM( dx November 2018), Hypothyroid Pshx: Total thyroidectomy/ 2017, TVH/2017 Allergies: Codeine/edema FH: Mother/Hypothyroid Social Hx: Cigarettes/ 1/2 a day x20 years Alcohol/ denies Drugs/ denies LMP: 2017 48-year-old female recently diagnosed with NIDDM in November 2018 presents to the ER complaining of nonproductive cough, chills, sweats with a Tmax temperature of 101.02 days ago/took Advil with relief. Patient states she did not take her temperature yesterday nor today but feels increased body aches with the nonproductive cough. Patient denies headache, dizziness, lightheadedness, nausea, vomiting, facial pain, rhinorrhea, nasal congestion, earache, sore throat, chest pain, shortness of breath, neck pain/stiffness, back pains, flank pains, abdominal pains, urinary symptoms, ext numbness or tingling sensation/weakness. Patient states her boyfriend and her son has been "sick". Patient states her boyfriend has been experiencing the same symptoms recently. Past History - Past Medical History Allergies/Adverse Reactions: Allergies Allergy/AdvReac Type Severity Reaction Status Date / Time codeine Allergy Swelling Verified 01/03/19 18:37 Home Medications: Ambulatory Orders Levothyroxine [Synthroid -] 88 mcg PO DAILY 03/05/17 Ferrous Sulfate [Feosol] 325 mg PO DAILY 03/08/17 Ibuprofen [Motrin -] 600 mg PO QID #28 tablet 10/18/17 Azithromycin [Zithromax -] 250 mg PO UTDICT #6 tab 01/03/19 Anemia: No Asthma: No Cancer: No Cardiac Disorders: No CVA: No COPD: No CHF: No Dementia: No Diabetes: No GI Disorders: No Disorders: No HTN: No Hypercholesterolemia: No Liver Disease: No Seizures: No Thyroid Disease: Yes (hypothyroid) - Surgical History Neurologic Surgery: Yes (SPINAL SX) - Immunization History Immunization Up to Date: Yes - Suicide/Smoking/Psychosocial Hx Smoking History: Current every day smoker Have you smoked in the past 12 months: Yes Number of Cigarettes Smoked Daily: 5 Information on smoking cessation initiated: No 'Breaking Loose' booklet given: 03/08/17 Hx Alcohol Use: No Drug/Substance Use Hx: No Substance Use Type: None Hx Substance Use Treatment: No Review of Systems - Review of Systems Able to Perform ROS?: Yes Comments:: 01/03/19 19:37 CONSTITUTIONAL: +generalized weakness, malaise, ever, chills, diaphoresis Absent: loss of appetite HEENT: Absent: rhinorrhea, nasal congestion, throat pain, throat swelling, difficulty swallowing, mouth swelling, ear pain, eye pain, visual Changes CARDIOVASCULAR: Absent: chest pain, loss of consciousness, palpitations, irregular heart rate, peripheral edema RESPIRATORY: +cough/non productive Absent: shortness of breath, dyspnea with exertion, orthopnea, wheezing, stridor , hemoptysis GASTROINTESTINAL: Absent: abdominal pain, abdominal distension, nausea, vomiting, diarrhea, constipation, melena, hematochezia GENITOURINARY: Absent: dysuria, frequency, urgency, hesitancy, hematuria, flank pain, genital pain MUSCULOSKELETAL: Absent: myalgia, arthralgia, joint swelling SKIN: Absent: rash, itching, pallor HEMATOLOGIC/IMMUNOLOGIC: Absent: easy bleeding, easy bruising, lymphadenopathy, frequent infections ENDOCRINE: Absent: unexplained weight gain, unexplained weight loss, heat intolerance, cold intolerance NEUROLOGIC: Absent: headache, focal weakness or paresthesias, dizziness, unsteady gait, seizure, mental status changes, bladder or bowel incontinence Is the patient limited Mohawk proficient: No *Physical Exam - Vital Signs Last Vital Signs Temp Pulse Resp BP Pulse Ox 98.5 F 89 16 118/70 100 01/03/19 18:37 01/03/19 18:37 01/03/19 18:37 01/03/19 18:37 01/03/19 18:37 - Physical Exam Comments: 01/03/19 19:38 GENERAL: Well developed, well nourished. Awake and alert. No acute distress. HEENT: Normocephalic, atraumatic. PERRLA, EOMI. No conjunctival pallor. Sclera are non- icteric. Moist mucous membranes. Oropharynx is clear. NECK: Supple. Full ROM. No JVD. Carotid pulses 2+ and symmetric, without bruits. No thyromegaly. No lymphadenopathy. CARDIOVASCULAR: Regular rate and rhythm. No murmurs, rubs, or gallops. Distal pulses are 2+ and symmetric. PULMONARY: No evidence of respiratory distress. Lungs clear to auscultation bilaterally. No wheezing, rales or rhonchi. ABDOMINAL: Soft. Non-tender. Non-distended. No rebound or guarding. No organomegaly. Normoactive bowel sounds. MUSCULOSKELETAL Normal range of motion at all joints. No bony deformities or tenderness. No CVA tenderness. EXTREMITIES: No cyanosis. No clubbing. No edema. No calf tenderness. SKIN: Warm and dry. Normal capillary refill. No rashes. No jaundice. NEUROLOGICAL: Alert, awake, appropriate. Cranial nerves 2-12 intact. No deficits to light touch and temperature in face, upper extremities and lower extremities. No motor deficits in the in face, upper extremities and lower extremities. Normoreflexic in the upper and lower extremities. Normal speech. Toes are down- going bilaterally. Gait is normal without ataxia. PSYCHIATRIC: Cooperative. Good eye contact. Appropriate mood and affect. Moderate Sedation - Procedure Monitoring Vital Signs: Procedure Monitoring Vital Signs Temperature 98.5 F 01/03/19 18:37 Pulse Rate 89 01/03/19 18:37 Respiratory Rate 16 01/03/19 18:37 Blood Pressure 118/70 01/03/19 18:37 O2 Sat by Pulse Oximetry (%) 100 01/03/19 18:37 ED Treatment Course - RADIOLOGY Radiograph Interpretation: 01/03/19 21:08 CXR neg *DC/Admit/Observation/Transfer Diagnosis at time of Disposition: Fever Qualifiers: Fever type: unspecified Qualified Code(s): R50.9 - Fever, unspecified Acute bronchitis Qualifiers: Bronchitis organism: unspecified organism Qualified Code(s): J20.9 - Acute bronchitis, unspecified - Discharge Dispostion Disposition: HOME Condition at time of disposition: Stable Decision to Admit order: No - Prescriptions Prescriptions: Azithromycin [Zithromax -] 250 mg PO UTDICT #6 tab - Referrals Referrals: Jay Cantu MD, MD [Primary Care Provider] - - Patient Instructions Printed Discharge Instructions: Acute Bronchitis Additional Instructions: Increase fluids Take Tylenol alternating with Motrin every 6 hours as needed Supportive care Z-Krishan until completion Follow with your physician within 2-3 days Return back to the ER for severe/persistent or worsening symptoms - Post Discharge Activity
[2019-01-03] MEDS ORDERED: SODIUM CHLORIDE 1,000 ML IV STA (19:38)
== END 2019-01-03 22:26 | disposition home or self-care (01) ==
LOC: JERFT 18:02 → JER 18:02
PROC: 3E0337Z Introduction of Electrolytic and Water Balance Substance into Peripheral Vein, Percutaneous Approach (ICD-10-PCS; principal; 2019-01-03)
DX: J20.9 Acute bronchitis, unspecified (principal); E11.9 Type 2 diabetes mellitus without complications; Z79.84 Long term (current) use of oral hypoglycemic drugs; E03.9 Hypothyroidism, unspecified
CPT/HCPCS: 71046-TC-FY; 87804; 96360; 99281-25; J7030

== ENCOUNTER 2019-01-17 13:35 | Emergency (ER) | payer OTHER ==
[2019-01-17 13:51] VITALS: BP 120/71; PULSE 76; TEMP 98.1; BMI 33.6
[2019-01-17 15:04] LABS: BASO % 1.1 % (0-2.0); EOS % 2.3 % (0-4.5); HEMATOCRIT 38.1 % (32.4-45.2); HEMOGLOBIN 12.9 GM/dL (10.7-15.3); LYMPH % 26.6 % (8-40); MCH 27.7 pg (25.7-33.7); MCHC 33.9 g/dl (32.0-36.0); MEAN CELL VOLUME 81.9 fl (80-96); MONO % 5.7 % (3.8-10.2); NEUT % 64.3 % (42.8-82.8); PLATELET COUNT 359 K/MM3 (134-434); RBC 4.65 M/mm3 (3.60-5.2); RDW 15.9 % (11.6-15.6)
[2019-01-17 15:39] LABS: ALBUMIN 3.3 g/dl (3.4-5.0); ALK PHOS 95 U/L (45-117); ANION GAP 4 MMOL/L (8-16); BILIRUBIN,TOTAL 0.3 mg/dL (0.2-1); BLOOD UREA NITROGEN 10 mg/dL (7-18); CALCIUM 9.4 mg/dL (8.5-10.1); CHLORIDE 104 mmol/L (98-107); CO2 31 mmol/L (21-32); CREATININE 0.9 mg/dL (0.55-1.3); GLUCOSE,RANDOM 102 mg/dL (74-106); POTASSIUM 3.8 mmol/L (3.5-5.1); SGOT/AST 5 U/L (15-37); SGPT/ALT 12 U/L (13-61); SODIUM 138 mmol/L (136-145); TOT PROT 7.2 g/dl (6.4-8.2)
--- NOTE | 2019-01-17 16:44 | PDOC ---
History of Present Illness - General Chief Complaint: Chest Pain Stated Complaint: SENT BY PCP Time Seen by Provider: 01/17/19 14:26 History Source: Patient Exam Limitations: No Limitations - History of Present Illness Initial Comments: 01/17/19 16:44 48 y/o female presents to the ED with c/o cough and kathryn chest achiness x 3 weeks. Pt states was seen here 2 weeks ago and given a zpak but s/s continue. Pt states hx of pre diabetes and hypothyroidism.pt denies sob, fver, headache , or weakness. pt is a daily cigarette smoker Timing/Duration: reports: other Severity: reports: mild Possible Cause: Yes: occasional episodes Past History - Travel Traveled outside of the country in the last 30 days: No Close contact w/someone who was outside of country & ill: No - Past Medical History Allergies/Adverse Reactions: Allergies Allergy/AdvReac Type Severity Reaction Status Date / Time codeine Allergy Swelling Verified 01/03/19 18:37 Home Medications: Ambulatory Orders Albuterol Sulfate Inhaler - [Ventolin HFA Inhaler -] 1 puff IH QID 01/17/19 Aspirin 1 tab PO DAILY 01/17/19 Levothyroxine Sodium [Levo-T] 125 mcg PO DAILY 01/17/19 Metformin HCl [Glucophage] 1 tab PO DAILY 01/17/19 Penicillamine [Depen] 1 tab PO DAILY 01/17/19 Prednisone 5 mg PO DAILY 01/17/19 Anemia: No Asthma: No Cancer: No Cardiac Disorders: No CVA: No COPD: No CHF: No Dementia: No Diabetes: No GI Disorders: No Disorders: No HTN: No Hypercholesterolemia: No Liver Disease: No Seizures: No Thyroid Disease: Yes (hypothyroid) - Surgical History Neurologic Surgery: Yes (SPINAL SX) - Immunization History Immunization Up to Date: Yes - Suicide/Smoking/Psychosocial Hx Smoking History: Current every day smoker Have you smoked in the past 12 months: Yes Number of Cigarettes Smoked Daily: 8 Information on smoking cessation initiated: No 'Breaking Loose' booklet given: 03/08/17 Hx Alcohol Use: No Drug/Substance Use Hx: No Substance Use Type: None Hx Substance Use Treatment: No Patient Lives Alone: No Lives with/in: spouse/SO Review of Systems - Review of Systems Able to Perform ROS?: Yes Constitutional: No: Symptoms Reported HEENTM: No: Symptoms Reported Respiratory: Yes: Cough Cardiac (ROS): Yes: Chest Pain (KATHRYN ACHING) ABD/GI: No: Symptoms Reported : No: Symptoms Reported Musculoskeletal: No: Symptoms Reported Integumentary: No: Symptoms Reported Neurological: No: Symptoms reported *Physical Exam - Vital Signs Last Vital Signs Temp Pulse Resp BP Pulse Ox 98.1 F 76 20 120/71 99 01/17/19 13:47 01/17/19 13:47 01/17/19 13:47 01/17/19 13:47 01/17/19 13:47 - Physical Exam General Appearance: Yes: Nourished, Appropriately Dressed. No: Apparent Distress HEENT: positive: EOMI, RENNY, TMs Normal, Pharynx Normal. negative: Pale Conjunctivae Respiratory/Chest: positive: Lungs Clear, Normal Breath Sounds. negative: Respiratory Distress, Accessory Muscle Use Cardiovascular: positive: Regular Rhythm, Regular Rate. negative: Murmur Gastrointestinal/Abdominal: positive: Soft. negative: Tenderness Extremity: positive: Normal Capillary Refill. negative: Pedal Edema Integumentary: positive: Normal Color, Warm, Moist Neurologic: positive: Motor Strength 5/5 (ambulatory) ED Treatment Course - LABORATORY CBC & Chemistry Diagram: 01/17/19 14:48 01/17/19 14:48 - ADDITIONAL ORDERS Additional order review: Laboratory Results 01/17/19 01/17/19 14:48 14:48 Sodium 138 Potassium 3.8 Chloride 104 Carbon Dioxide 31 Anion Gap 4 L BUN 10 Creatinine 0.9 Creat Clearance w eGFR 66.55 Random Glucose 102 Calcium 9.4 Total Bilirubin 0.3 AST 5 L ALT 12 L Alkaline Phosphatase 95 Creatine Kinase 28 Troponin I < 0.02 Total Protein 7.2 Albumin 3.3 L TSH 0.71 01/17/19 14:48 RBC 4.65 MCV 81.9 MCHC 33.9 RDW 15.9 H D MPV 7.0 L Neutrophils % 64.3 D Lymphocytes % 26.6 D Monocytes % 5.7 Eosinophils % 2.3 D Basophils % 1.1 - RADIOLOGY Radiology Studies Ordered: Category Date Time Status CHEST PA & LAT [RAD] Stat Radiology 01/17/19 14:31 Taken Medical Decision Making - Medical Decision Making 01/17/19 15:56 CC: nonprod dry cough x 3 weeks now w/ kathryn chest achiness Exam: reprod. kathryn chest pain, lcta Plan: labs, tsh, cxr, and reeval 01/17/19 16:58 Laboratory Tests 01/17/19 01/17/19 01/17/19 14:48 14:48 14:48 WBC 11.0 H Hgb 12.9 Hct 38.1 D RDW 15.9 H D MPV 7.0 L Neutrophils % 64.3 D Sodium 138 Potassium 3.8 Chloride 104 Carbon Dioxide 31 Anion Gap 4 L BUN 10 Creatinine 0.9 Creat Clearance w eGFR 66.55 Random Glucose 102 Calcium 9.4 Total Bilirubin 0.3 AST 5 L ALT 12 L Alkaline Phosphatase 95 Creatine Kinase 28 Troponin I < 0.02 Total Protein 7.2 Albumin 3.3 L TSH 0.71 Cxr shows bronchial inflammation along with faint haziness to rll. Due to pt's hx of smoking, dm, and recent tx w/ abx and no resolution. Pt will be given robitussin and levaquin *DC/Admit/Observation/Transfer Diagnosis at time of Disposition: Cough - Discharge Dispostion Disposition: HOME Condition at time of disposition: Good - Referrals Referrals: Jay Cantu MD, MD [Primary Care Provider] - - Patient Instructions Printed Discharge Instructions: DI for Acute Bronchitis - Post Discharge Activity
--- NOTE | 2019-01-20 11:15 | EKG ---
Test Reason : Blood Pressure : / mmHG Vent. Rate : 072 BPM Atrial Rate : 072 BPM P-R Int : 138 ms QRS Dur : 072 ms QT Int : 384 ms P-R-T Axes : 076 078 049 degrees QTc Int : 420 ms NORMAL SINUS RHYTHM WITH SINUS ARRHYTHMIA NONSPECIFIC T WAVE ABNORMALITY ABNORMAL ECG WHEN COMPARED WITH ECG OF 05-MAR-2017 15:42, T WAVE VARIATION Confirmed by KENDELL DUNCAN MD ([id number]) on 01/20/2019 11:14:38 AM Referred By: Confirmed By:KENDELL DUNCAN MD
== END 2019-01-17 15:25 | disposition home or self-care (01) ==
LOC: JER 13:35
DX: E03.9 Hypothyroidism, unspecified (principal); F17.210 Nicotine dependence, cigarettes, uncomplicated
CPT/HCPCS: 36415; 71046-TC-FY; 80053; 82550; 84443; 84484; 85025; 93005; 93010; 99282-25

== ENCOUNTER 2019-03-03 08:20 | Emergency (ER) | payer OTHER ==
[2019-03-03 08:29] VITALS: BP 107/60; PULSE 60; TEMP 97.5; BMI 33.7
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
[2019-03-03] MEDS ORDERED: BACITRACIN 15 GM TUBE TOPICAL OINTMENT TP SCH (10:00)
== END 2019-03-03 09:35 | disposition home or self-care (01) ==
LOC: JERFT 08:20
DX: T23.192A Burn of first degree of multiple sites of left wrist and hand, initial encounter (principal); X10.1XXA Contact with hot food, initial encounter; Y93.89 Activity, other specified; Y92.89 Other specified places as the place of occurrence of the external cause; Y99.0 Civilian activity done for income or pay; F17.210 Nicotine dependence, cigarettes, uncomplicated; E03.9 Hypothyroidism, unspecified; R73.03 Prediabetes
CPT/HCPCS: 99281-25

== ENCOUNTER 2023-05-06 16:04 | Emergency (ER) | payer OTHER ==
[2023-05-06 16:22] VITALS: BP 129/69; PULSE 56; RESP 18; TEMP 97.5; BMI 33.6
[2023-05-06 17:28] LABS: BASO % 0.9 % (0-2.0); EOS % 2.7 % (0-4.5); HEMATOCRIT 38.9 % (32.4-45.2); HEMOGLOBIN 12.8 GM/dL (10.7-15.3); LYMPH % 28.3 % (8-40); MCH 25.9 pg (25.7-33.7); MCHC 32.8 g/dl (32.0-36.0); MEAN PLT VOLUME 7.4 fl (7.5-11.1); MONO % 6.7 % (3.8-10.2); NEUT % 61.4 % (42.8-82.8); PLATELET COUNT 314 10^3/uL (134-434); RBC 4.92 M/mm3 (3.60-5.2); RDW 15.9 % (11.6-15.6); WHITE BLOOD COUNT 7.6 K/mm3 (4.0-10.0)
[2023-05-06 17:34] LABS: INR 1.07 (0.83-1.09); PROTHROMBIN TIME (PATIENT) 12.4 SEC (9.7-13.0)
[2023-05-06 17:37] LABS: ACTIVATED PTT 31.2 SECONDS (25.2-36.5)
[2023-05-06 17:46] LABS: POTASSIUM 3.6 mmol/L (3.5-5.1)
[2023-05-06 17:48] LABS: ALBUMIN 3.3 g/dl (3.4-5.0); BLOOD UREA NITROGEN 8.2 mg/dL (7-18)
[2023-05-06 17:51] LABS: CREATININE 1.1 mg/dL (0.55-1.3)
[2023-05-06 17:53] LABS: BILIRUBIN,TOTAL 0.2 mg/dL (0.2-1); TOT PROT 7.4 g/dl (6.4-8.2)
[2023-05-06] MEDS ORDERED: IBUPROFEN 600 MG TABLET (FP) PO ONE ×2 (19:48→20:50)
== END 2023-05-06 20:53 | disposition home or self-care (01) ==
LOC: JER 16:04
DX: R07.2 Precordial pain (principal)
CPT/HCPCS: 36415; 71045-TC-FY; 80053; 84484; 85025; 85610; 85730; 93005; 93010; 99285-25